=== PATIENT | female | born 1990 | race Caucasian/White ===

== ENCOUNTER → 2020-07-29 | Outpatient (CLI) | payer BC | END | disposition home or self-care (01) | LOC: RAD 12:01 | PROVIDERS: ATTEND Nurse Practitioner Family | DX: N83.292 Other ovarian cyst, left side (principal) | CPT/HCPCS: 76830 ==

== ENCOUNTER 2020-10-13 14:42 | Emergency (ER) | payer BC ==
[~2020-10-13] VITALS: Ht 165.1 cm; Wt 72.1 kg
[2020-10-13 14:44] VITALS: BP 134/74
== END 2020-10-13 17:09 | disposition home or self-care (01) ==
LOC: ED 16:45
DX: M79.662 Pain in left lower leg (principal)
CPT/HCPCS: 99284